=== PATIENT | male | born 1955 | race Caucasian/White ===

== ENCOUNTER 2020-06-30 09:32 | Outpatient (REF) | payer OTHER, SELFPAY ==
[2020-06-30 11:28] LABS: C Reactive Protein 0.43 mg/dL (< or = 0.50)
[2020-06-30 12:10] LABS: Erythrocyte Sedimentation Rate 9 MM/HR (0-15)
== END 2020-06-30 09:33 | disposition home or self-care (01) ==
LOC: HO.LAB 09:32
PROVIDERS: PCP Physician Assistant; Visit Provider Student in an Organized Health Care Education/Training Program
DX: M25.50 Pain in unspecified joint (principal); F17.200 Nicotine dependence, unspecified, uncomplicated; Z79.899 Other long term (current) drug therapy
CPT/HCPCS: 36415; 85652; 86140; 99212

== ENCOUNTER 2020-10-28 09:06 | Outpatient (REF) | payer OTHER, SELFPAY ==
--- NOTE | ~2020-10-28 | XR_ITS ---
EXAMINATION: XR KNEE, RIGHT CLINICAL INFORMATION: Pain. COMPARISON: None TECHNIQUE: AP, lateral and sunrise views of the right knee. FINDINGS: Bony alignment and mineralization are normal. There is very mild asymmetric narrowing of the medial joint space compartment. The lateral and patellofemoral joint space compartments are well-maintained. There is a tiny peripheral osteophyte of the lateral articular surface of the patella. There is a small osteophyte arising from the upper pole of the patella at the insertion of the quadriceps tendon. No fracture or dislocation is seen. There is no significant joint effusion. No foreign body is seen are submitted. XR/XR knee LT 3V IMPRESSION: 1. There is very mild osteoarthritic change of the medial and patellofemoral joint space compartments of the right knee. 2. No fracture, dislocation or joint effusion is seen. EXAMINATION: XR KNEE, LEFT CLINICAL INFORMATION: Pain. COMPARISON: None TECHNIQUE: AP, lateral and sunrise views of the left knee are submitted. FINDINGS: Bony alignment and mineralization are normal. The lateral, medial and patellofemoral joint space compartments are well-maintained. There is a tiny peripheral osteophyte of the lateral articular surface of the patella. No fracture or dislocation is seen. There is no significant joint effusion. No foreign body is seen. IMPRESSION: 1. There is minimal arthritic change of the patellofemoral joint space compartments of the right knee. 2. No fracture, dislocation or joint effusion is seen.
--- NOTE | ~2020-10-28 | XR_ITS ---
EXAMINATION: XR KNEE, RIGHT CLINICAL INFORMATION: Pain. COMPARISON: None TECHNIQUE: AP, lateral and sunrise views of the right knee. FINDINGS: Bony alignment and mineralization are normal. There is very mild asymmetric narrowing of the medial joint space compartment. The lateral and patellofemoral joint space compartments are well-maintained. There is a tiny peripheral osteophyte of the lateral articular surface of the patella. There is a small osteophyte arising from the upper pole of the patella at the insertion of the quadriceps tendon. No fracture or dislocation is seen. There is no significant joint effusion. No foreign body is seen are submitted. XR/XR knee RT 3V IMPRESSION: 1. There is very mild osteoarthritic change of the medial and patellofemoral joint space compartments of the right knee. 2. No fracture, dislocation or joint effusion is seen. EXAMINATION: XR KNEE, LEFT CLINICAL INFORMATION: Pain. COMPARISON: None TECHNIQUE: AP, lateral and sunrise views of the left knee are submitted. FINDINGS: Bony alignment and mineralization are normal. The lateral, medial and patellofemoral joint space compartments are well-maintained. There is a tiny peripheral osteophyte of the lateral articular surface of the patella. No fracture or dislocation is seen. There is no significant joint effusion. No foreign body is seen. IMPRESSION: 1. There is minimal arthritic change of the patellofemoral joint space compartments of the right knee. 2. No fracture, dislocation or joint effusion is seen.
== END 2020-10-28 09:07 | disposition home or self-care (01) ==
LOC: HO.XRAY 09:06
PROVIDERS: PCP Physician Assistant; Visit Provider Student in an Organized Health Care Education/Training Program
DX: G89.29 Other chronic pain (principal); M25.561 Pain in right knee; M25.562 Pain in left knee
CPT/HCPCS: 73562; 99212

== ENCOUNTER → 2024-01-30 10:10 | Outpatient (RCR) | payer OTHER, SELFPAY ==
[2020-04-21 11:38] VITALS: BP 157/92; PULSE 64; RESP 12; TEMP 36.8; O2SAT 96; BMI 35.4
[2020-04-21 11:39] LABS: MANUAL DIFF FLAG NO
[2020-04-21 11:57] LABS: Basophils Percent Auto 0.5 % (0-2); Eosinophils Absolute Auto 0.1 X10*3/uL (0.0-0.4); Eosinophils Percent Auto 1.6 % (0-4); Hematocrit 42.5 % (42-52); Hemoglobin 14.6 g/dl (14.0-18.0); Imm Gran Abs Auto 0.04 X10*3/uL (0.00-0.03); Imm Gran Pct Auto 0.5 % (0.0-0.4); Lymphocytes Percent Auto 35.7 % (20-40); Mean Corpuscular HGB Conc 34.4 g/dl (31.0-36.0); Mean Corpuscular Hemoglobin 32.4 pg (27.0-33.0); Mean Corpuscular Volume 94.4 fL (80-98); Monocytes Absolute Auto 0.8 X10*3/uL (0.1-1.2); Monocytes Percent Auto 9.1 % (2-11); Neutrophils Absolute Auto 4.4 X10*3/uL (2.0-8.3); Neutrophils Percent Auto 52.6 % (45-73); Platelet Count 251 X10*3/uL (160-400); Red Cell Distribution Width 13.8 % (11.0-16.0); White Blood Count 8.3 X10*3/uL (4.8-10.8)
--- NOTE | 2020-04-21 12:03 | PM.HEMONCPN ---
Medical Summary - Medical Summary Date of Service: 04/21/20 Chief complaint: for cardiolipin antibody positivity. Medical Summary: DIAGNOSIS: ANTI-CARDIOLIPIN ANTIBODY POSITIVITY. Interval History Interval history: This is a pleasant 64-year-old gentleman who is here for a follow-up visit. He tells me nothing is new with his medical history. No changes in his medications. He denies having had any thromboembolic phenomena in the past. No Raynaud's phenomena. Denies fever chills or night sweats. Energy level is great. No chest pain or trouble breathing. Denies abdominal pain nausea vomiting heartburn indigestion. Bowels are working without any gross blood in it. Enjoys a Good appetite. He has gained weight. He has had joint pains. He has had arthralgias. These involved his ankles and knee joints. Complains of polyarthralgias. Joint pains involved the neck shoulders hands ankles and knees. Body feels tight. 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 It is years of repeatedly beating himself up, he said. the us he has sprained his ankle, he keeps moving elbows wrists and gets pain there and in the lower back. His left knee snaps. He is in good spirits. Rest of the review of systems is unremarkable. Review of Systems - Constitutional Reports no additional constitutional complaints, Denies anorexia, Denies fatigue, Denies fever(s), Reports weight gain - Eyes Reports no additional eye complaints - ENT Reports no additional ear, nose, mouth, and throat complaints - Cardiovascular Reports no additional cardiovascular complaints - Respiratory Reports no additional respiratory complaints - Gastrointestinal Reports no additional gastrointestinal complaints - Genitourinary Genitourinary: Reports no additional male genitourinary complaints - Musculoskeletal Reports no additional musculoskeletal complaints, Reports back pain, Reports body aches, Reports joint pain - Integumentary/Breasts Skin/Breast: Reports no additional skin complaints - Neurologic Reports no additional neurologic complaints - Psychiatric Reports no additional psychiatric complaints - Endocrine Reports no additional endocrine complaints - Hematologic/Lymphatic Reports no additional hematologic/lymphatic complaints - Allergic/Immunologic Reports no additional allergic/immunologic complaints [facility] Medical History: Medical History (Last Updated 04/21/20 @ 09:34 by Ade Chew) BPH (benign prostatic hyperplasia) History of folliculitis HTN (hypertension) Hx of gynecomastia Pulmonary nodule Functional capacity: independent ambulation Patient : No Family History: Family History (Last Updated 04/21/20 @ 09:35 by Ade Chew) Brother Colon cancer Brother Hepatitis Smoking status: Current every day smoker Home Medications and Allergies Home Medications Medication Instructions Recorded Confirmed Type losartan 1 tab PO DAILY 04/21/20 04/21/20 History Allergies Allergy/AdvReac Type Severity Reaction Status Date / Time penicillin G [PENICILLIN G] Allergy Intermediate HIVES Unverified 02/06/20 19:42 penicillin V Allergy Unknown Verified 12/20/19 00:00 VACCINES Allergy Intermediate UNKNOWN Uncoded 02/06/20 19:42 bees Allergy Unknown Uncoded 12/20/19 00:00 Exam Vital signs: Vital Signs Temp 98.2 F 04/21/20 11:38 Pulse 64 04/21/20 11:38 Resp 12 04/21/20 11:38 BP 157/92 H 04/21/20 11:38 Pulse Ox 96 04/21/20 11:38 Intake & Output 04/20/20 04/21/20 04/21/20 18:59 06:59 18:59 Other: Weight 102.8 kg Weight 102.8 kg Body Mass Index 35.4 - Constitutional Present: no acute distress - Routine HEENT Exam Head: Present: normal inspection ENT: Present: mucous membranes moist - Routine Neck Exam Present: full ROM - Routine Respiratory Exam Present: CTAB - Routine Cardiovascular Exam Cardiovascular: Present: RRR, S1, S2 - Routine Abdominal Exam Present: soft, nontender - Routine Rectal Exam Patient deferred: digital exam - Routine Extremities Exam Present: nontender - Routine Skin Exam Present: intact - Routine Neurological Exam Present: alert, oriented X3 - Detailed Neurological Exam: Coma Scale Eye Opening: Spontaneous (4) Verbal Response: Oriented (5) Motor Response: Obeys commands (6) Glascow Coma Scale Total: 15 - Routine Psychiatric Exam Present: normal affect Data - Labs CBC & Chem 7: 04/21/20 11:35 04/21/20 11:35 Progress Note: A/P (1) Anti-cardiolipin antibody syndrome Status: Acute Assessment and plan: This is a pleasant 64-year-old gentleman with history of polyarthralgias. He underwent a rheumatological evaluation. As part of a panel an anti cardiolipin antibody test was performed. This came back positive for elevated IgG antibody L mildly elevated IgM. DIFFERENTIAL DIAGNOSIS INCLUDES: 1. Anti-Cardiolipin antibody syndrome. He does not have any history of any thromboembolism. IgM is minimally elevated. His lupus anticoagulant is negative. PLAN: l proceeded with a workup. I rechecked anti cardiolipin antibody. CARDIOLIPIN AB] Jan 06 CARDIO IgG AB 53 Jan 06 CARDIO IgM AB 14 Jan 06 l checked beta 2 glycoprotein. [B-2 GLYCOPRO AB]^ Jan 06 15:05 B-2 GLYCOPR IGG <9 Jan 06 15:05 <9 B-2 GLYCOP IGM <9 Jan 06 15:05 <9 B-2 GLYCOP IGA <9 <C> Jan 06 15:05 <9 B-2 MICROGLOB 2.12 <C> Dec 17) LUP COAG INTERP A Lupus Anticoaguant is not detected. PLAN: For now, he will continue a baby aspirin once a day. Will continue to monitor the cardiolipin antibody and advise further. He will return in 6 months for a follow-up visit. Thank you, CC: Dr. Jyothi Engel. Dr. Thacker. - Time Spent With Patient Total time spent is greater than 50% in coordination of care (as documented) at patient's floor/unit and/or counseling patient: 25 - 35 minutes
[2020-04-21 12:15] LABS: Alanine Aminotransferase 24 U/L (0-40); Albumin Level 4.2 g/dL (3.5-5.0); Alkaline Phosphatase 94 U/L (39-117); Anion Gap 13 (12-20); Aspartate Amino Transferase 19 U/L (5-37); Bilirubin Total 0.5 mg/dL (0.0-1.0); Blood Urea Nitrogen 18 mg/dL (9-16); Calcium 8.8 mg/dL (8.4-10.2); Carbon Dioxide 23 mmol/L (22-29); Chloride 106 mmol/L (96-108); Creatinine Clr Calc Pharmacy 77.4; Estimated Glomerular Filt Rate > 60; Glucose Random 97 mg/dL (60-115); Potassium 4.2 mmol/l (3.3-5.1); Sodium 138 mmol/L (135-145); Total Protein 6.9 g/dL (6.5-8.0)
--- NOTE | 2020-04-22 12:32 | MHC.HEMONCMA ---
Patient's lab work came back normal, Dr Plunkett asked me to call the patient to notify him. I called and left a voicemail, I let him know that if he needed or wanted more information he could call back.
[2020-04-24 23:48] LABS: Cardiolipin IgG Ab 48 GPL; Cardiolipin IgM Ab 23 MPL
[2021-01-01 08:37] LABS: MANUAL DIFF FLAG NO
[2021-01-01 08:41] LABS: Basophils Percent Auto 0.5 % (0-2); Eosinophils Absolute Auto 0.2 X10*3/uL (0.0-0.4); Eosinophils Percent Auto 2.1 % (0-4); Hematocrit 41.2 % (42-52); Hemoglobin 14.4 g/dl (14.0-18.0); Imm Gran Abs Auto 0.09 X10*3/uL (0.00-0.03); Imm Gran Pct Auto 1.2 % (0.0-0.4); Lymphocytes Absolute Auto 2.7 X10*3/uL (1.2-4.9); Lymphocytes Percent Auto 34.8 % (20-40); Mean Corpuscular Hemoglobin 32.8 pg (27.0-33.0); Mean Corpuscular Volume 93.8 fL (80-98); Mean Platelet Volume 9.7 fL (9.4-12.4); Monocytes Absolute Auto 0.7 X10*3/uL (0.1-1.2); Monocytes Percent Auto 9.3 % (2-11); Neutrophils Percent Auto 52.1 % (45-73); Platelet Count 254 X10*3/uL (160-400); Red Blood Count 4.39 X10*6/uL (4.60-5.80); Red Cell Distribution Width 13.9 % (11.0-16.0); White Blood Count 7.7 X10*3/uL (4.8-10.8)
[2021-01-01 08:53] VITALS: BP 147/88; PULSE 57; RESP 12; TEMP 36.3; O2SAT 96; BMI 35.9
--- NOTE | 2021-01-01 09:04 | P.PNHO_ITS ---
Medical Summary - Medical Summary Date of Service: 01/01/21 Chief complaint: Follow-up for: Cardiolipin antibody. Medical Summary: DIAGNOSIS: ANTI-CARDIOLIPIN ANTIBODY POSITIVITY. Interval History Interval history: This is a pleasant 65 year-old gentleman who is here for a follow-up visit. He tells me that overall he feels wonderful. His energy level is great. Denies fever chills or night sweats. No chest pain or trouble breathing. Denies abdominal pain nausea vomiting heartburn indigestion. Bowels are working without any gross blood in it. Enjoys a good appetite. He has gained weight. He has had a history of knee arthritis. He had cortisone short 2 weeks ago. It is wearing off. His pain level is 5. He is following up with the orthopedist. They are going to do an MRI and then decide about the gel insertion. He tells me nothing else is new with his medical history. No changes in his medications He has had joint pains. He has had arthralgias. These involved his ankles and knee joints. Complains of polyarthralgias. Joint pains involved the neck shoulders hands ankles and knees. Body feels tight. 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 It is years of repeatedly beating himself up, he said. He denies having had any thromboembolic phenomena in the past. No Raynaud's phenomena. He is in good spirits. Rest of the review of systems is unremarkable. Review of Systems - Constitutional Reports no additional constitutional complaints, Denies fatigue, Denies lack of energy, Denies poor appetite, Reports weight gain - Eyes Reports no additional eye complaints - ENT Reports no additional ear, nose, mouth, and throat complaints - Cardiovascular Reports no additional cardiovascular complaints - Respiratory Reports no additional respiratory complaints - Gastrointestinal Reports no additional gastrointestinal complaints - Genitourinary Genitourinary: Reports no additional male genitourinary complaints - Musculoskeletal Reports no additional musculoskeletal complaints, Reports back pain, Reports body aches, Reports joint pain Comments: Knees hurt. - Integumentary/Breasts Skin/Breast: Reports no additional skin complaints - Neurologic Reports no additional neurologic complaints - Psychiatric Reports no additional psychiatric complaints - Endocrine Reports no additional endocrine complaints - Hematologic/Lymphatic Reports no additional hematologic/lymphatic complaints - Allergic/Immunologic Reports no additional allergic/immunologic complaints [facility] Medical History: Medical History (Last Reviewed 01/01/21 @ 08:55 by Emmanuel Ayers) BPH (benign prostatic hyperplasia) History of folliculitis HTN (hypertension) Hx of gynecomastia Pulmonary nodule Functional capacity: independent ambulation Patient : No Family History: Family History (Last Reviewed 01/01/21 @ 08:56 by Emmanuel Ayers) Brother Colon cancer Brother Hepatitis Surgical History: Surgical History (Last Updated 01/01/21 @ 08:56 by Emmanuel Ayers) H/O hernia repair H/O rotator cuff surgery Social History: Social History (Last Reviewed 01/01/21 @ 08:56 by Emmanuel Ayers) Alcohol History: Alcohol intake: current Alcohol History Details: Alcohol intake frequency: a few times a week Alcohol type: beer Alcohol type: wine Tobacco History: Patient Tobacco Use Status: Current everyday Tobacco Years Smoked: 40 e-Cigarette/Vaping Use: Never Used Substance Use History: Use of substances other than those prescribed or required for medical reasons : No Nutrition Assessment: Patient : No Oncology Screenings - ECOG Performance Status ECOG Performance Status: 0 Home Medications and Allergies Home Medications Medication Instructions Recorded Confirmed Type losartan 100 mg tablet 1 tab PO DAILY 04/21/20 04/21/20 History aspirin 81 mg tablet,delayed 81 mg PO DAILY 06/30/20 01/01/21 History release acetaminophen 650 mg 650 tab PO DAILY 01/01/21 01/01/21 History tablet,extended release (Mapap Arthritis Pain) Allergies Allergy/AdvReac Type Severity Reaction Status Date / Time penicillin G [PENICILLIN G] Allergy Intermediate HIVES Verified 10/28/20 09:20 bees Allergy Intermediate swelling Uncoded 06/30/20 09:46 VACCINES Allergy Intermediate UNKNOWN Uncoded 02/06/20 19:42 Exam Vital signs: Vital Signs Temp 97.4 F 01/01/21 08:53 Pulse 57 01/01/21 08:53 Resp 12 01/01/21 08:53 BP 147/88 H 01/01/21 08:53 Pulse Ox 96 01/01/21 08:53 Intake & Output 12/31/20 01/01/21 01/01/21 18:59 06:59 18:59 Other: Weight 104 kg Weight in Grams [id number] Weight 104 kg Body Mass Index 35.9 - Constitutional Present: no acute distress - Routine HEENT Exam Head: Present: normal inspection Eye: Present: normal appearance ENT: Present: mucous membranes moist - Routine Neck Exam Present: full ROM - Routine Respiratory Exam Present: CTAB - Routine Cardiovascular Exam Cardiovascular: Present: RRR, S1, S2 - Routine Abdominal Exam Present: soft, nontender - Routine Extremities Exam Present: nontender - Routine Back/Spine/Pelvis Exam Back/Spine: Present: full ROM - Routine Skin Exam Present: intact - Routine Neurological Exam Present: alert, oriented X3 - Detailed Neurological Exam: Coma Scale Eye Opening: Spontaneous (4) - Routine Psychiatric Exam Present: normal affect Data - Labs CBC & Chem 7: 01/01/21 08:34 01/01/21 08:34 Labs: 04/21/20 11:35 Cardiolipin Antibodies Routine Complete Blood Count Auto Diff Routine Comprehensive Met. Panel Routine 01/01/21 08:34 Complete Blood Count Auto Diff Routine Laboratory Last Values WBC 7.7 X10*3/uL (4.8-10.8) 01/01/21 08:34 RBC 4.39 X10*6/uL (4.60-5.80) L 01/01/21 08:34 Hgb 14.4 g/dl (14.0-18.0) 01/01/21 08:34 Hct 41.2 % (42-52) L 01/01/21 08:34 MCV 93.8 fL (80-98) 01/01/21 08:34 MCH 32.8 pg (27.0-33.0) 01/01/21 08:34 MCHC 35.0 g/dl (31.0-36.0) 01/01/21 08:34 RDW 13.9 % (11.0-16.0) 01/01/21 08:34 Plt Count 254 X10*3/uL (160-400) 01/01/21 08:34 MPV 9.7 fL (9.4-12.4) 01/01/21 08:34 Immature Gran % (Auto) 1.2 % (0.0-0.4) H 01/01/21 08:34 Neut % (Auto) 52.1 % (45-73) 01/01/21 08:34 Lymph % (Auto) 34.8 % (20-40) 01/01/21 08:34 [place] % (Auto) 9.3 % (2-11) 01/01/21 08:34 Eos % (Auto) 2.1 % (0-4) 01/01/21 08:34 Baso % (Auto) 0.5 % (0-2) 01/01/21 08:34 Lymph # (Auto) 2.7 X10*3/uL (1.2-4.9) 01/01/21 08:34 [place] # (Auto) 0.7 X10*3/uL (0.1-1.2) 01/01/21 08:34 Eos # (Auto) 0.2 X10*3/uL (0.0-0.4) 01/01/21 08:34 Baso # (Auto) 0.0 X10*3/uL (0.0-0.2) 01/01/21 08:34 Abs Immat Gran (auto) 0.09 X10*3/uL (0.00-0.03) H 01/01/21 08:34 Absolute Neuts (auto) 4.0 X10*3/uL (2.0-8.3) 01/01/21 08:34 Absolute Nucleated RBC 0.000 X10*3/uL (0.0-0.012) 01/01/21 08:34 Nucleated RBC % (auto) 0.0 /100WBC (0.0-0.2) 01/01/21 08:34 Sodium 138 mmol/L (135-145) 04/21/20 11:35 Potassium 4.2 mmol/l (3.3-5.1) 04/21/20 11:35 Chloride 106 mmol/L (96-108) 04/21/20 11:35 Carbon Dioxide 23 mmol/L (22-29) 04/21/20 11:35 Anion Gap 13 (12-20) 04/21/20 11:35 BUN 18 mg/dL (9-16) H 04/21/20 11:35 Creatinine 1.13 mg/dL (0.5-1.4) 04/21/20 11:35 Estim Creat Clear Calc 77.4 04/21/20 11:35 Estimated GFR > 60 04/21/20 11:35 Random Glucose 97 mg/dL (60-115) 04/21/20 11:35 Calcium 8.8 mg/dL (8.4-10.2) 04/21/20 11:35 Total Bilirubin 0.5 mg/dL (0.0-1.0) 04/21/20 11:35 AST 19 U/L (5-37) 04/21/20 11:35 ALT 24 U/L (0-40) 04/21/20 11:35 Alkaline Phosphatase 94 U/L (39-117) 04/21/20 11:35 Total Protein 6.9 g/dL (6.5-8.0) 04/21/20 11:35 Albumin 4.2 g/dL (3.5-5.0) 04/21/20 11:35 Anti-Cardiolipin IgG Ab 48 GPL H 04/21/20 11:35 Anti-Cardiolipin IgM Ab 23 MPL H 04/21/20 11:35 Progress Note: A/P (1) Anti-cardiolipin antibody syndrome Status: Acute Assessment and plan: This is a pleasant 65 year-old gentleman with history of polyarthralgias. He underwent a rheumatological evaluation. As part of a panel an anti cardiolipin antibody test was performed. This came back positive for elevated IgG antibody L mildly elevated IgM. DIFFERENTIAL DIAGNOSIS INCLUDES: 1. Anti-Cardiolipin antibody syndrome. He does not have any history of any thromboembolism. IgM is minimally elevated. His lupus anticoagulant is negative. PLAN: l proceeded with a workup. I rechecked anti cardiolipin antibody. CARDIOLIPIN AB] Jan 06 CARDIO IgG AB 53 Jan 06 CARDIO IgM AB 14 Jan 06 l checked beta 2 glycoprotein. [B-2 GLYCOPRO AB]^ Jan 06 15:05 B-2 GLYCOPR IGG <9 Jan 06 15:05 <9 B-2 GLYCOP IGM <9 Jan 06 15:05 <9 B-2 GLYCOP IGA <9 <C> Jan 06 15:05 <9 B-2 MICROGLOB 2.12 <C> Dec 17) LUP COAG INTERP A Lupus Anticoaguant is not detected. He is doing great. No evidence for any thromboembolic phenomena. PLAN: He will continue a baby aspirin once a day, for now. Will continue to monitor the cardiolipin antibody and advise further. He will return in 6 months for a follow-up visit. Thank you, CC: Dr. Jyothi Engel. Dr. Thacker. - Time Spent With Patient Time Spent with Patient (in minutes): 25
[2021-01-01 09:08] LABS: Alanine Aminotransferase 31 U/L (0-40); Albumin Level 4.4 g/dL (3.5-5.0); Alkaline Phosphatase 110 U/L (39-117); Anion Gap 13 (12-20); Aspartate Amino Transferase 21 U/L (5-37); Bilirubin Total 0.6 mg/dL (0.0-1.0); Blood Urea Nitrogen 18 mg/dL (9-16); Calcium 9.1 mg/dL (8.4-10.2); Carbon Dioxide 23 mmol/L (22-29); Chloride 108 mmol/L (96-108); Estimated Glomerular Filt Rate > 60; Glucose Random 100 mg/dL (60-115); Potassium 4.3 mmol/L (3.3-5.1); Sodium 140 mmol/L (135-145)
--- NOTE | 2021-01-01 10:59 | MHC.HEMONCMA ---
Pt came in for hem follow up and states he is doing well. clinical summary was updated and labs were drawn. pt will be seen in 6 months for f/u on 07/05/20.
[2021-01-04 11:37] LABS: Cardiolipin IgG Ab <2.0 GPL-U/mL; Cardiolipin IgM Ab 6.9 MPL-U/mL
--- NOTE | 2021-07-05 12:05 | HO.HEMONCSCH ---
Left message for patient to let him know he missed apt. N/S letter was sent for n/s apt on 07/05/21
== END | disposition home or self-care (01) ==
LOC: HO.ONC 04-21 11:24
PROVIDERS: PCP Physician Assistant; Visit Provider Internal Medicine Medical Oncology
DX: D68.61 Antiphospholipid syndrome (principal); Z79.82 Long term (current) use of aspirin
CPT/HCPCS: 36415; 80053; 85025; 86147; 99213; 99214